=== PATIENT | male | born 1970 | race Caucasian/White ===

== ENCOUNTER 2021-10-05 18:09 | Emergency (ER) | payer OTHER ==
[~2021-10-05 18:09] MED LIST: AUGMENTIN 875 M1 TAB PO; BIAXIN500 MG PO; CLARITIN10 MG PO; COMBIVENT1 ARO IH; EES400 MG PO; FOLIC ACID1 MG PO; INDOCIN50 MG PO; MEDROL DOSEPAK4 MG PO; METHOTREXATE2.5 M1 PO; MOTRIN800 MG PO; NKHM; NORFLEX100 MG PO; PREDNISONE5 MG PO; PROVENTIL0.09 MG/AC IH; RANITIDINE HCL300 M2 PO; VICODIN 5/500 505 MG PO; VICODIN 500 MG-1 TAB PO; VICODIN ES 7501 TAB PO; ZITHROMAX Z PA250 MG PO
[2021-10-05 18:35] LABS: MEAN CELL VOLUME 95.3 fl (80.0-94.0); MEAN CORPUSCULAR HGB 30.6 pg (27.0-31.0); MEAN CORPUSCULAR HGB CONC 32.1 g/dl (33.0-37.0); MEAN PLATELET VOLUME 9.8 fl (9.6-12.3); PLATELET COUNT AUTOMATED 274 10*3/uL (130-400); RED BLOOD COUNT 4.93 10*6/uL (4.50-5.90); RED CELL DISTRI WIDTH 14.8 % (0-14.5); WHITE BLOOD COUNT 14.8 10*3/uL (4.8-10.8)
[2021-10-05 18:45] LABS: ACT PARTIAL THROMBO TIME 28.4 SECONDS (20.0-32.1)
[2021-10-05 18:57] LABS: ALBUMIN 3.2 gm/dl (3.1-4.5); ALKALINE PHOSPHATASE 107 U/L (45-117); BUN 12 mg/dl (7-24); CHLORIDE 102 mmol/L (98-107); CREATININE 1.15 mg/dL (0.70-1.30); SGOT/AST 96 IU/L (3-35); SGPT/ALT 90 U/L (12-78); SODIUM 134 mmol/L (136-145); TOTAL PROTEIN 8.6 gm/dL (6.4-8.2)
[2021-10-05 19:06] LABS: ATYPICAL LYMPHS 3 % (0-0); PLATELET SUFFICIENCY NORMAL (NORMAL); TOTAL CELLS COUNTED 100 #CELLS
[2021-10-05] MEDS ORDERED: BUPRENORPHINE-1 EAC1 SL (19:16)
[2021-10-05] MEDS ORDERED: METFORMIN HYD1000 MG PO (19:18)
[2021-10-05] MEDS ORDERED: LIPITOR20 MG PO (19:18)
[2021-10-05] MEDS ORDERED: ZESTORETIC 10-1 EACH PO (19:18)
[2021-10-05 19:19] VITALS: BP 124/69
== END 2021-10-05 21:04 | disposition home or self-care (01) ==
LOC: ED 18:09
PROVIDERS: Emergency Medicine
DX: I47.1 Supraventricular tachycardia (principal); D72.829 Elevated white blood cell count, unspecified; R79.89 Other specified abnormal findings of blood chemistry; Z79.899 Other long term (current) drug therapy

== ENCOUNTER → 2021-12-01 | Outpatient (CLI) | payer OTHER ==
[~2021-12-01] MED LIST changes: +BUPRENORPHINE-1 EAC1 SL; +LIPITOR20 MG PO; +METFORMIN HYD1000 MG PO; +OMEPRAZOLE40 MG PO; +PROAIR HFA8.5 GM INH; +SUBOXONE 8 MG-1 EACH SL; +TOPROL XL50 M1 PO; +ZESTORETIC 10-1 EACH PO
== END ==
LOC: CARD 01:18
PROVIDERS: ATTEND Internal Medicine Cardiovascular Disease
DX: I20.9 Angina pectoris, unspecified (principal)

== ENCOUNTER 2022-04-01 15:59 | Emergency (ER) | payer OTHER ==
[~2022-04-01] VITALS: Ht 180.3 cm; Wt 127.0 kg
[2022-04-01 16:08] VITALS: BP 135/62
[2022-04-01 16:47] LABS: BASO % 0.4 % (0.0-1.0); EOS # 0.4 10*3/uL (0.0-0.4); EOS % 3.7 % (1.0-4.0); HEMATOCRIT 42.2 % (42.0-52.0); LYMPH # 3.2 10*3/uL (1.3-4.4); LYMPH % 29.9 % (27.0-41.0); MEAN CORPUSCULAR HGB 31.7 pg (27.0-31.0); MEAN CORPUSCULAR HGB CONC 32.7 g/dl (33.0-37.0); MEAN PLATELET VOLUME 9.6 fl (9.6-12.3); MONO # 0.7 10*3/uL (0.1-1.0); MONO % 6.2 % (3.0-9.0); NEUT # 6.3 10*3/uL (2.3-7.9); NEUT % 59.5 % (47.0-73.0); PLATELET COUNT AUTOMATED 224 10*3/uL (130-400); RED BLOOD COUNT 4.35 10*6/uL (4.50-5.90); RED CELL DISTRI WIDTH 14.2 % (0-14.5); WHITE BLOOD COUNT 10.6 10*3/uL (4.8-10.8)
[2022-04-01 16:58] LABS: ACT PARTIAL THROMBO TIME 28.2 SECONDS (20.0-32.1); INTERNATIONAL NORM RATIO 0.9 (2.0-3.5)
[2022-04-01 17:02] LABS: ALKALINE PHOSPHATASE 102 U/L (45-117); BUN 10 mg/dl (7-24); CHLORIDE 101 mmol/L (98-107); CREATININE 0.99 mg/dL (0.70-1.30); SGOT/AST 48 IU/L (3-35); SGPT/ALT 57 U/L (12-78); SODIUM 134 mmol/L (136-145); TOTAL PROTEIN 7.8 gm/dL (6.4-8.2)
[2022-04-01] MEDS ORDERED: VIBRA-TAB100 MG PO (18:37)
== END 2022-04-01 18:47 | disposition left against medical advice (07) ==
LOC: ED 15:59
PROVIDERS: Emergency Medicine
DX: L03.115 Cellulitis of right lower limb (principal); Z79.899 Other long term (current) drug therapy; Z90.89 Acquired absence of other organs

== ENCOUNTER 2023-11-14 00:17 | Emergency (ER) | payer OTHER ==
[~2023-11-14] VITALS: Ht 182.8 cm; Wt 117.9 kg
[~2023-11-14 00:17] MED LIST changes: +VIBRA-TAB100 MG PO
[2023-11-14 00:49] LABS: HEMATOCRIT 39.2 % (42.0-52.0); MANUAL DIFF REFLEX YES; MEAN CELL VOLUME 96.1 fl (80.0-94.0); MEAN CORPUSCULAR HGB 30.6 pg (27.0-31.0); MEAN CORPUSCULAR HGB CONC 31.9 g/dl (33.0-37.0); MEAN PLATELET VOLUME 9.9 fl (9.6-12.3); PLATELET COUNT AUTOMATED 203 10*3/uL (130-400); RED BLOOD COUNT 4.08 10*6/uL (4.50-5.90); RED CELL DISTRI WIDTH 15.7 % (0-14.5); WHITE BLOOD COUNT 12.8 10*3/uL (4.8-10.8)
[2023-11-14 01:06] LABS: POTASSIUM 4.1 mmol/L (3.4-5.1); TOTAL PROTEIN 8.8 gm/dL (6.0-8.0)
[2023-11-14 01:19] LABS: PLATELET SUFFICIENCY NORMAL (NORMAL); TOTAL CELLS COUNTED 100 #CELLS
[2023-11-14 02:09] LABS: BILIRUBIN 1+ (Negative); BLOOD Trace-Lysed (Negative); CLARITY Cloudy (Clear); COLOR Dark Yellow (Yellow); GLUCOSE Negative (Negative); KETONE Trace (Negative); LEUKO ESTERASE Negative (Negative); NITRITE Negative (Negative); PH 5.5 (4.5-8.0); SPECIFIC GRAVITY 1.025 (1.001-1.030)
[2023-11-14 02:18] LABS: BACTERIA 3+; HYALINE CAST 41-50
[2023-11-14 03:27] LABS: URINE AMPHETAMINES Negative (1000ng/ml); URINE BARBITURATES Negative (200ng/ml); URINE BENZODIAZEPINES Negative (200ng/ml); URINE CANNABINOIDS (THC) Negative (50ng/ml); URINE COCAINE Negative (300ng/ml); URINE METHADONE Negative (300ng/ml); URINE OPIATES Negative (300ng/ml); URINE PHENCYCLIDINE Negative (25ng/ml)
[2023-11-14 04:47] VITALS: BP 151/68
== END 2023-11-14 05:47 | disposition left against medical advice (07) ==
LOC: ED 00:17
PROVIDERS: Internal Medicine
DX: J18.9 Pneumonia, unspecified organism (principal); Z20.822 Contact with and (suspected) exposure to COVID-19; R05.9 Cough, unspecified; E11.22 Type 2 diabetes mellitus with diabetic chronic kidney disease; N18.9 Chronic kidney disease, unspecified; E11.65 Type 2 diabetes mellitus with hyperglycemia; R65.20 Severe sepsis without septic shock; D64.9 Anemia, unspecified; E44.1 Mild protein-calorie malnutrition; I12.9 Hypertensive chronic kidney disease with stage 1 through stage 4 chronic kidney disease, or unspecified chronic kidney disease; N17.9 Acute kidney failure, unspecified; E78.00 Pure hypercholesterolemia, unspecified; Z98.890 Other specified postprocedural states; Z68.1 Body mass index [BMI] 19.9 or less, adult; Z53.29 Procedure and treatment not carried out because of patient's decision for other reasons; Z79.899 Other long term (current) drug therapy

== ENCOUNTER 2024-01-24 16:06 | Emergency (ER) | payer OTHER ==
[~2024-01-24] VITALS: Wt 113.4 kg
[2024-01-24 16:13] VITALS: BP 137/60
[2024-01-24] MEDS ORDERED: HYDROmorphONE Hydrochloride 0.5 MG/0.5 ML SYRINGE IV ONE (16:25)
[2024-01-24] MEDS ORDERED: SODIUM CHLORIDE 0.9% 1,000 ML IV ONE ×2 (16:25→18:25)
[2024-01-24 16:35] LABS: BASO % 0.3 % (0.0-1.0); EOS # 0.3 10*3/uL (0.0-0.4); EOS % 2.6 % (1.0-4.0); HEMATOCRIT 42.1 % (42.0-52.0); LYMPH # 3.6 10*3/uL (1.3-4.4); LYMPH % 35.5 % (27.0-41.0); MEAN CELL VOLUME 96.6 fl (80.0-94.0); MEAN CORPUSCULAR HGB 30.7 pg (27.0-31.0); MEAN CORPUSCULAR HGB CONC 31.8 g/dl (33.0-37.0); MEAN PLATELET VOLUME 9.5 fl (9.6-12.3); MONO # 0.5 10*3/uL (0.1-1.0); MONO % 4.9 % (3.0-9.0); NEUT # 5.6 10*3/uL (2.3-7.9); NEUT % 56.3 % (47.0-73.0); PLATELET COUNT AUTOMATED 233 10*3/uL (130-400); RED BLOOD COUNT 4.36 10*6/uL (4.50-5.90); RED CELL DISTRI WIDTH 16.2 % (0-14.5)
[2024-01-24 16:59] LABS: BUN 11 mg/dl (9-23); CHLORIDE 103 mmol/L (98-107); POTASSIUM 3.2 mmol/L (3.4-5.1)
[2024-01-24] MEDS ORDERED: MORPHINE Sulfate 2 MG/ML SYR IV ONE ×2 (17:25→18:25)
[2024-01-24 18:29] LABS: BILIRUBIN Negative (Negative); BLOOD Negative (Negative); CLARITY Clear (Clear); COLOR Yellow (Yellow); GLUCOSE Negative (Negative); KETONE Negative (Negative); LEUKO ESTERASE Negative (Negative); NITRITE Negative (Negative); UROBILINOGEN 0.2 E.U./dl (0.0-1.0)
[2024-01-24 18:37] LABS: URINE AMPHETAMINES Negative (1000ng/ml); URINE BARBITURATES Negative (200ng/ml); URINE BENZODIAZEPINES Negative (200ng/ml); URINE CANNABINOIDS (THC) Negative (50ng/ml); URINE COCAINE Negative (300ng/ml); URINE METHADONE Negative (300ng/ml); URINE OPIATES Positive (300ng/ml); URINE PHENCYCLIDINE Negative (25ng/ml)
[2024-01-24 18:45] LABS: EPITHELIAL CELLS 0-2; WBC 16-20 wbc/hpf (0-5)
== END 2024-01-24 19:14 | disposition short-term general hospital (02) ==
LOC: ED 16:06
PROVIDERS: Nurse Practitioner Family
DX: S32.031A Stable burst fracture of third lumbar vertebra, initial encounter for closed fracture (principal); R10.31 Right lower quadrant pain; M25.551 Pain in right hip; M25.552 Pain in left hip; E11.9 Type 2 diabetes mellitus without complications; I10 Essential (primary) hypertension; K21.9 Gastro-esophageal reflux disease without esophagitis; Z93.0 Tracheostomy status; Z79.2 Long term (current) use of antibiotics; Z79.899 Other long term (current) drug therapy; V84.5XXA Driver of special agricultural vehicle injured in nontraffic accident, initial encounter; Y93.I9 Activity, other involving external motion; Y92.488 Other paved roadways as the place of occurrence of the external cause; Y99.8 Other external cause status

== ENCOUNTER → 2024-02-23 | Outpatient (CLI) | payer OTHER ==
[~2024-02-23] MED LIST changes: +NEURONTIN800 MG PO; +NICODERM CQ1 EAC2 T; +NICOTINE LOZENGE2 MG BC
== END | disposition home or self-care (01) ==
LOC: LAB 13:56
PROVIDERS: ATTEND Internal Medicine Hematology & Oncology
DX: C90.00 Multiple myeloma not having achieved remission (principal); E86.0 Dehydration

== ENCOUNTER → 2024-03-07 | Outpatient (CLI) | payer OTHER | END | disposition home or self-care (01) | LOC: RAD 16:54 | PROVIDERS: ATTEND Neurological Surgery | DX: S32.038A Other fracture of third lumbar vertebra, initial encounter for closed fracture (principal); X58.XXXA Exposure to other specified factors, initial encounter; Y93.89 Activity, other specified; Y92.89 Other specified places as the place of occurrence of the external cause; Y99.8 Other external cause status ==

== ENCOUNTER → 2024-07-18 | Outpatient (CLI) | payer OTHER ==
[~2024-07-18] MED LIST changes: +CEPHALEXIN500 M1 PO; +METFORMIN850 MG PO; +SEPTDS PO
== END | disposition home or self-care (01) ==
LOC: CARD 08:08
PROVIDERS: ATTEND Internal Medicine Cardiovascular Disease
DX: I47.10 Supraventricular tachycardia, unspecified (principal); E78.5 Hyperlipidemia, unspecified; I10 Essential (primary) hypertension; R00.2 Palpitations

== ENCOUNTER 2024-07-20 17:44 | Emergency (ER) | payer OTHER ==
[~2024-07-20] VITALS: Ht 180.3 cm; Wt 108.9 kg
[~2024-07-20 17:44] MED LIST changes: -CEPHALEXIN500 M1 PO; -METFORMIN850 MG PO; -SEPTDS PO
[2024-07-20 18:08] VITALS: BP 118/64
[2024-07-20] MEDS ORDERED: METFORMIN850 MG PO (18:09)
[2024-07-20 19:00] LABS: BASO % 0.2 % (0.0-1.0); EOS # 0.3 10*3/uL (0.0-0.4); EOS % 3.7 % (1.0-4.0); HEMATOCRIT 37.4 % (42.0-52.0); LYMPH # 2.1 10*3/uL (1.3-4.4); LYMPH % 23.5 % (27.0-41.0); MEAN CELL VOLUME 94.2 fl (80.0-94.0); MEAN CORPUSCULAR HGB 30.2 pg (27.0-31.0); MEAN CORPUSCULAR HGB CONC 32.1 g/dl (33.0-37.0); MEAN PLATELET VOLUME 10.2 fl (9.6-12.3); MONO # 0.7 10*3/uL (0.1-1.0); MONO % 8.3 % (3.0-9.0); NEUT # 5.6 10*3/uL (2.3-7.9); PLATELET COUNT AUTOMATED 203 10*3/uL (130-400); RED BLOOD COUNT 3.97 10*6/uL (4.50-5.90); RED CELL DISTRI WIDTH 15.3 % (0-14.5); WHITE BLOOD COUNT 8.7 10*3/uL (4.8-10.8)
[2024-07-20 19:18] LABS: BUN 13 mg/dl (9-23); CHLORIDE 103 mmol/L (98-107); POTASSIUM 3.7 mmol/L (3.4-5.1)
[2024-07-20] MEDS ORDERED: SEPTDS PO (20:16)
[2024-07-20] MEDS ORDERED: CEPHALEXIN500 M1 PO (20:16)
[2024-07-20] MEDS ORDERED: Sulfamethoxazole/Trimethopri 1 TAB TAB PO ONE (20:20)
[2024-07-20] MEDS ORDERED: CEPHALEXIN 500 MG CAP PO ONE (20:20)
== END 2024-07-20 20:21 | disposition home or self-care (01) ==
LOC: ED 17:44
PROVIDERS: Nurse Practitioner Family
DX: L03.115 Cellulitis of right lower limb (principal); E44.1 Mild protein-calorie malnutrition; Z79.899 Other long term (current) drug therapy

== ENCOUNTER → 2025-04-05 | Outpatient (CLI) | payer OTHER ==
[~2025-04-05] MED LIST changes: +CEPHALEXIN500 M1 PO; +METFORMIN850 MG PO; +SEPTDS PO
== END | disposition home or self-care (01) ==
LOC: US 12:50
PROVIDERS: ATTEND Physician Assistant
DX: C90.00 Multiple myeloma not having achieved remission (principal); C79.51 Secondary malignant neoplasm of bone; M79.605 Pain in left leg; M79.604 Pain in right leg; E86.0 Dehydration; Z93.0 Tracheostomy status; Z51.11 Encounter for antineoplastic chemotherapy

== ENCOUNTER → 2025-08-29 | Outpatient (CLI) | payer OTHER | END | disposition home or self-care (01) | LOC: WOUNDCARE 02:21 | PROVIDERS: ATTEND Nurse Practitioner Family | DX: E11.621 Type 2 diabetes mellitus with foot ulcer (principal); L97.512 Non-pressure chronic ulcer of other part of right foot with fat layer exposed; E11.42 Type 2 diabetes mellitus with diabetic polyneuropathy; I87.2 Venous insufficiency (chronic) (peripheral); C90.00 Multiple myeloma not having achieved remission; I10 Essential (primary) hypertension; F19.90 Other psychoactive substance use, unspecified, uncomplicated; F11.90 Opioid use, unspecified, uncomplicated; F17.290 Nicotine dependence, other tobacco product, uncomplicated ==

== ENCOUNTER → 2025-09-10 | Outpatient (CLI) | payer OTHER | END | disposition home or self-care (01) | LOC: WOUNDCARE 02:37 | PROVIDERS: ATTEND Nurse Practitioner Family | DX: E11.621 Type 2 diabetes mellitus with foot ulcer (principal); L97.512 Non-pressure chronic ulcer of other part of right foot with fat layer exposed; L84 Corns and callosities; E11.42 Type 2 diabetes mellitus with diabetic polyneuropathy; C90.00 Multiple myeloma not having achieved remission; I87.2 Venous insufficiency (chronic) (peripheral); I10 Essential (primary) hypertension; F19.90 Other psychoactive substance use, unspecified, uncomplicated; F17.290 Nicotine dependence, other tobacco product, uncomplicated ==

== ENCOUNTER 2025-09-15 19:53 | Emergency (ER) | payer OTHER ==
[~2025-09-15] VITALS: Ht 177.8 cm; Wt 108.9 kg
[2025-09-15 19:57] VITALS: BP 105/57
[2025-09-15] MEDS ORDERED: Albuterol Sulf/Ipratropium 3 ML VIAL NEB ONE ×2 (20:15→22:15)
[2025-09-15 20:32] LABS: BASO # 0.0 10*3/uL (0.0-0.1); BASO % 0.2 % (0.0-1.0); EOS # 0.0 10*3/uL (0.0-0.4); EOS % 0.6 % (1.0-4.0); MEAN CELL VOLUME 97.3 fl (80.0-94.0); MEAN CORPUSCULAR HGB 30.4 pg (27.0-31.0); MEAN PLATELET VOLUME 10.1 fl (9.6-12.3); MONO # 0.9 10*3/uL (0.1-1.0); MONO % 14.0 % (3.0-9.0); NEUT # 5.1 10*3/uL (2.3-7.9); NEUT % 80.9 % (47.0-73.0); NUCLEATED RED BLOOD CELL 0.0 % (0.0-0.0); NUCLEATED RED BLOOD CELL 0.0 10*3/uL (0.0-0.0); PLATELET COUNT AUTOMATED 214 10*3/uL (130-400); RED CELL DISTRI WIDTH 16.1 % (0-14.5)
[2025-09-15 20:53] LABS: BUN 20.0 mg/dl (9-23)
[2025-09-16] MEDS ORDERED: LEVOFLOXACIN500 MG PO (13:02)
[2025-09-16] MEDS ORDERED: OXYCODONE HCL5 MG PO (13:02)
[2025-09-16] MEDS ORDERED: MORPHINE SULFAT30 M9 PO (13:02)
[2025-09-16] MEDS ORDERED: ACYCLOVIR400 MG PO (13:03)
[2025-09-16] MEDS ORDERED: CETIRIZINE HYDR10 MG PO (13:03)
[2025-09-16] MEDS ORDERED: DECADRON4 MG PO (13:04)
[2025-09-16] MEDS ORDERED: METOPROLOL SUCC50 M1 PO (13:05)
[2025-09-16] MEDS ORDERED: GOOD SENSE ASP325 MG PO (13:05)
[2025-09-16] MEDS ORDERED: REVLIMID10 MG PO (13:06)
== END 2025-09-15 22:44 | disposition left against medical advice (07) ==
LOC: ED 19:53
PROVIDERS: Internal Medicine
DX: J44.1 Chronic obstructive pulmonary disease with (acute) exacerbation (principal); D53.9 Nutritional anemia, unspecified; J96.02 Acute respiratory failure with hypercapnia; J96.01 Acute respiratory failure with hypoxia; E78.00 Pure hypercholesterolemia, unspecified; I12.9 Hypertensive chronic kidney disease with stage 1 through stage 4 chronic kidney disease, or unspecified chronic kidney disease; E11.22 Type 2 diabetes mellitus with diabetic chronic kidney disease; N18.32 Chronic kidney disease, stage 3b; Z53.29 Procedure and treatment not carried out because of patient's decision for other reasons

== ENCOUNTER → 2025-09-26 | Outpatient (CLI) | payer OTHER ==
[~2025-09-26] MED LIST changes: +ACYCLOVIR400 MG PO; +CETIRIZINE HYDR10 MG PO; +DECADRON4 MG PO; +GOOD SENSE ASP325 MG PO; +LEVOFLOXACIN500 MG PO; +METOPROLOL SUCC50 M1 PO; +MORPHINE SULFAT30 M9 PO; +OXYCODONE HCL5 MG PO; +REVLIMID10 MG PO
== END | disposition home or self-care (01) ==
LOC: US 13:58
PROVIDERS: ATTEND Orthopaedic Surgery
DX: I73.9 Peripheral vascular disease, unspecified (principal)